=== PATIENT | male | born 1945 | race Caucasian/White ===

== ENCOUNTER 2018-05-14 10:25 | Emergency (ER) | payer MEDICARE ==
--- NOTE | 2018-05-14 10:59 | ED ---
Fall HPI - General Chief Complaint: Fall Stated Complaint: fall off ladder Time Seen by Provider: 05/14/18 10:33 Source: patient, RN notes reviewed Mode of arrival: wheelchair Limitations: no limitations - History of Present Illness Initial Comments: This is a 73-year-old male who presents to the emergency department with chief complaint of fall injuries. Patient states that at 9 AM this morning he was up on a ladder. He states that his head was at approximately 8 feet. Patient states that the ladder slipped and he fell from it. Patient reports hitting the back of his head on the wood portion of his grill. He denies loss of consciousness, nausea or vomiting or headache. He does state that immediately following the incident he felt dizzy. Patient denies blood thinner use. Denies neck or back pain. Patient reports facial injury, stating that he cut his chin and the inside of his lower lip. Patient also reports left ankle pain. He states that there is pain in his heel with bearing weight and ambulating. Patient denies any other injuries or trauma. Denies chest pain, shortness of breath, abdominal pain. - Related Data Home Medications Medication Instructions Recorded Confirmed Allopurinol [Zyloprim] 300 mg PO DAILY 05/14/18 05/14/18 Ascorbic Acid [Vitamin C] 500 mg PO BID 05/14/18 05/14/18 Aspirin EC [Ecotrin Low Dose] 81 mg PO DAILY 05/14/18 05/14/18 Esomeprazole Magnesium [NexIUM] 20 mg PO BID 05/14/18 05/14/18 Multivitamins, Thera [Multivitamin 1 tab PO DAILY 05/14/18 05/14/18 (formulary)] Pentoxifylline 400 mg PO BID 05/14/18 05/14/18 Simvastatin 40 mg PO HS 05/14/18 05/14/18 Allergies Allergy/AdvReac Type Severity Reaction Status Date / Time morphine Allergy Severe BP Verified 05/14/18 10:51 DECREASES acetaminophen [From Vicodin] AdvReac Severe Abdominal Verified 05/14/18 10:51 Pain hydrocodone [From Vicodin] AdvReac Severe Abdominal Verified 05/14/18 10:51 Pain oxycodone AdvReac Severe Abdominal Verified 05/14/18 10:51 Pain Review of Systems ROS Statement: Those systems with pertinent positive or pertinent negative responses have been documented in the HPI. ROS Other: All systems not noted in ROS Statement are negative. Past Medical History Past Medical History: Hyperlipidemia History of Any Multi-Drug Resistant Organisms: None Reported Past Psychological History: No Psychological Hx Reported Smoking Status: Former smoker Past Alcohol Use History: Daily Past Drug Use History: None Reported General Exam - General Exam Comments Initial Comments: General: Awake and alert, well-developed; in no apparent distress. HEENT: Head atraumatic, normocephalic. Superficial abrasion to the chin. Approximately 0.5 cm in length laceration to the inner lower lip. No bleeding. Small superficial abrasion to mid-posterior scalp. Pupils are equal, round and reactive to light. Extraocular movements intact. Oropharynx moist without erythema or exudate. Neck: Supple. Normal ROM. No tenderness. Cardiovascular: Regular rate and rhythm. No murmurs, rubs or gallops. Chest symmetrical. No tenderness. Respiratory: Lungs clear to auscultation bilaterally. No wheezes, rales or rhonchi. Normal respiratory effort with no use of accessory muscles. Abdomen: Soft, non-tender, non-distended. No rigidity, rebound or guarding. Normal bowel sounds in all 4 quadrants. Musculoskeletal: Normal range of motion of bilateral upper and lower extremities. There is mild soft tissue swelling at the lateral malleolus of the left ankle. Sensation is intact. Pedal pulses are 2+ equal and palpable bilaterally. Skin: [place], warm and dry. Neurological: Alert and oriented x3. CN II-XII grossly intact. Speech is fluent and answers are appropriate. No focal neuro deficits. Psychiatric: Normal mood and affect. No overt signs of depression or anxiety noted. Limitations: no limitations Course Vital Signs 05/14/18 10:26 Temperature 97.8 F Pulse Rate 91 Respiratory 20 Rate Blood Pressure 144/88 O2 Sat by Pulse 100 Oximetry - Reevaluation(s) Reevaluation #1: Spoke with Blu Ortiz PA-C with [facility]. Recommended computed tomography scan of the left foot, placement of splint, nonweightbearing and follow-up with Dr. De La Paz. Findings and plan were discussed with patient at bedside. He is in agreement. 05/14/18 12:10 Procedures - Orthopedic Splinting/Casting Injury #1 Side: left Lower Extremity Injury Location: short leg, foot Lower Extremity Immobilizer: posterior splint, stirrup splint, synthetic pre- padded splint Medical Decision Making - Medical Decision Making This is a 73-year-old male who presents to the emergency department with chief complaint of fall injury. Patient reports falling from a ladder at 9AM. He reports hitting the back of his head. No loss of consciousness, headache, nausea or vomiting. He does admit to dizziness following the incident. No focal neuro deficits. Patient also complains of a lower lip laceration. Small laceration to inner lower lip. This is not through and through. No bleeding. Requests tetanus vaccination. Patient also complains of left ankle pain. He reports pain to the heel with bearing weight and ambulating. Computed tomography scan of the brain and C-spine revealed no acute abnormalities. X- rays of the left ankle and foot revealed a comminuted intra-articular fracture of the left calcaneus. Case discussed with Blu Ortiz, physician pastrycook's assistant for [facility]. He recommended computed tomography scan of the foot. Computed tomography scan of the foot revealed multiple fractures through the calcaneus. A short leg OCL posterior and stirrup splint were placed. Patient strongly advised to remain non-weightbearing. Patient given contact information for follow-up with Dr. De La Paz. Vitals are stable and he is in no acute distress. He will be discharged home at this time. He is in agreement and voices understanding. All questions were answered. - Radiology Data Radiology results: report reviewed, image reviewed CT brain and C-spine without contrast impression: Age-related atrophic and chronic small vessel ischemic change without acute intracranial process seen at this time. No evidence for acute fracture or subluxation of the cervical spine. Left ankle and a left foot x-ray impression: Comminuted intra-articular calcaneal fracture. CT left foot without contrast impression: 1. Comminuted calcaneal fracture. There is intra-articular extension into the calcaneocuboidal and anterior subtalar joints. Fracture also extends into the sinus tarsi. 2. There is additional fracture extension along the posterior margin of the posterior subtalar joint as well as the anterolateral margin with the greatest degree of impaction and comminution contributes to 1.4 x 0.9 cm bony defect. 3. The medial wall of the posterior calcaneal body is caved in with an angulated and rotated 2.1 cm cortical fragment. As read by Dr. Ahmed Disposition Clinical Impression: Fall, Intra-articular fracture of calcaneus Disposition: HOME SELF-CARE Condition: Good Instructions: Calcaneal Fracture (ED) Additional Instructions: Please remain nonweightbearing. Please keep splint clean, dry and intact. Please follow up with Dr. De La Paz, [facility] within 1-2 days. Is patient prescribed a controlled substance at d/c from ED?: No Referrals: Isidro Rust MD [Primary Care Provider] - 1-2 days Jas De La Paz MD [Medical Doctor] - 1-2 days Time of Disposition: 13:33
--- NOTE | 2018-05-14 11:19 | CT ---
EXAMINATION TYPE: CT brain yusra brewster DATE OF EXAM: 05/14/2018 COMPARISON: None HISTORY: pain CT DLP: 966.[address] of the brain was performed. The ventricles, basal cisterns and sulci overlying the cerebral convexities demonstrate enlargement. There is no evidence for intracranial hemorrhage or sulcal effacement. There is decreased attenuatio n about the periventricular white matter and deep white matter of both cerebral hemispheres, compatib le with chronic small vessel ischemia. No mass effects are seen. If symptoms persist consider MRI. Osseous calvarium is intact. IMPRESSION: 1. Age related atrophic and chronic small vessel ischemic change without acute intracranial process seen at this time. CT Cervical Spine: Unenhanced CT of the cervical spine was performed with bone and soft tissue window settings submitted . Coronal and sagittal reconstruction is obtained. There is normal alignment and prevertebral soft tissues. No evidence for acute cervical fracture . Scattered degenerative disc disease and spondylosis. Biapical scarring. IMPRESSION: 1. No evidence for acute fracture or subluxation of the cervical spine.
--- NOTE | 2018-05-14 11:24 | XR ---
Left foot and left ankle HISTORY: Pain, trauma 3 views of the left foot and 3 views of the left ankle are submitted. Postop changes noted to the distal tibia. Bone mineralization is mildly reduced. Joint spaces and ali gnment are maintained. There is a calcaneal fracture present which appears comminuted and impacted, fracture line extends an teriorly to the articular surface, likely into the subtalar joint additionally. Soft tissue swelling is present. IMPRESSION: Comminuted intra-articular calcaneal fracture.
--- NOTE | 2018-05-14 13:18 | CT ---
EXAMINATION TYPE: CT foot LT wo con DATE OF EXAM: 05/14/2018 COMPARISON: Radiograph same day HISTORY: 73-year-old male calcaneal fracture, abnormal Xray TECHNIQUE: Contiguous axial scanning of the left foot without IV contrast. Coronal and sagittal recon structions performed. 3-D reconstructions generated on a dedicated independent workstation. CT DLP: 87.6 mGycm Automated exposure control for dose reduction was used. FINDINGS: Prior intramedullary nailing partially visualized of the tibia. There is a comminuted fracture of the calcaneus. Intra-articular extension into the sinus Tarsi and c alcaneocuboid joint. Fracture extends to the posterior margin of the posterior subtalar joint and als o to the anterolateral margin of the posterior subtalar joint where the greatest degree of comminutio n, impaction, and bone defect is present measuring 9 mm wide by 1.4 cm AP. The medial wall of the posterior calcaneal body is kinked in with a 2.1 x 1.9 cm cortical fragment ro tated and angulated fracture extends into the anterior subtalar joint. Prominent lateral malleolar soft tissue contusion. Midfoot alignment is maintained. IMPRESSION: 1. COMMINUTED CALCANEAL FRACTURE. THERE IS INTRA-ARTICULAR EXTENSION INTO THE CALCANEOCUBOIDAL AND AN TERIOR SUBTALAR JOINTS. FRACTURE ALSO EXTENDS INTO THE SINUS TARSI. 2. THERE IS ADDITIONAL FRACTURE EXTENSION ALONG THE POSTERIOR MARGIN OF THE POSTERIOR SUBTALAR JOINT WELL THE ANTEROLATERAL MARGIN WHERE THE GREATEST DEGREE OF IMPACTION AND COMMINUTION CONTRIBUTE S TO A 1.4 X 0.9 CM BONY DEFECT. 3. THE MEDIAL WALL OF THE POSTERIOR CALCANEAL BODY IS CAVED IN WITH AN ANGULATED AND ROTATED 2.1 CM C ORTICAL FRAGMENT.
[2018-05-14] MEDS ORDERED: DIPH,PERTUS(ACELL)TETVAC-LF 0.5 ML VIAL IM ONE (13:31)
[2018-05-14 13:49] VITALS: BP 130/66; PULSE 78; RESP 18; TEMP 98.3
== END 2018-05-14 13:49 | disposition home or self-care (01) ==
LOC: EC 10:25
DX: S92.062A Displaced intraarticular fracture of left calcaneus, initial encounter for closed fracture (principal); S01.511A Laceration without foreign body of lip, initial encounter; E78.5 Hyperlipidemia, unspecified; Z87.891 Personal history of nicotine dependence; Z79.82 Long term (current) use of aspirin; Z79.899 Other long term (current) drug therapy; Z88.5 Allergy status to narcotic agent; Z88.6 Allergy status to analgesic agent; Z23 Encounter for immunization; W11.XXXA Fall on and from ladder, initial encounter; Y92.89 Other specified places as the place of occurrence of the external cause
CPT/HCPCS: 29515; 70450; 72125; 90471; 90715; 99284